=== PATIENT | male | born 1945 | race Caucasian/White ===

== ENCOUNTER 2025-03-15 09:06 | Emergency (ER) | payer MEDICARE, OTHER, SELFPAY ==
[2025-03-15 09:09] VITALS: BP 164/89; PULSE 77; TEMP 36.6; O2SAT 96
--- NOTE | 2025-03-15 10:03 | CT_ITS ---
WS: [id number] CT chest w con* [id number] HISTORY: trauma TECHNIQUE: Axial imaging performed through the thorax. Coronal and sagittal reformats are submitted. All CT scans at [facility] use at least one of these dose optimization techniques: automated exposure control; mA and/or kV adjustment per patient size (includes targeted exams where dose is matched to clinical indication); or iterative reconstruction. CONTRAST: Omnipaque 350; 100 mL IV. DLP: 392.08 mGy.cm COMPARISON: None available. Lungs and central airway: Lungs are well aerated. No pneumothorax. There is very minimal atelectasis and dependent changes at the lung bases. No pulmonary laceration. No mass or nodule. Pleura: Normal. No pleural effusion. Heart and pericardium: Mild RIGHT heart enlargement. No pericardial effusion. Mediastinum and brenda: No mediastinum or hilar adenopathy. Vessels: Mild atherosclerosis aorta. No filling defects in the proximal pulmonary arteries. Chest wall and lower neck: Acute minimally displaced rib fractures involving the ninth and 10th ribs posteriorly. Additional nondisplaced 11th rib fracture on the LEFT. There is a very subtle lucency through the LEFT L1 transverse process which is suspicious for an L1 transverse process fracture. Remote RIGHT healed ninth rib fracture. Severe LEFT shoulder arthritis. Prior RIGHT shoulder replacement. Thoracic spondylosis. No acute thoracic spine fracture identified. Upper abdomen: 1.2 cm RIGHT adrenal cyst. Nonobstructing calcifications upper pole of each kidney. No adrenal mass. No splenic or liver lacerations identified through the upper abdominal organs. Osseous structures: See chest wall above. CT/CT chest w con* [id number] IMPRESSION: 1. No pulmonary laceration or pneumothorax. 2. Acute minimally displaced rib fractures involving the LEFT ninth and 10th r ibs. Nondisplaced LEFT 11th rib fracture. 3. Incompletely visualized lucency through the LEFT L1 transverse process. Non displaced fracture not excluded. Lumbar spine CT may be of benefit. 4. Severe osteoarthritis LEFT shoulder.
--- NOTE | 2025-03-15 10:03 | XR_ITS ---
WS: [id number] Exam: XR chest 1V portable [id number] Date/Time of Exam: 03/15/2025 10:05 AM Reason For Exam: trauma No priors. The lungs are clear and fully expanded. Normal cardiomediastinal silhouette. No pleural effusions. Numerous old RIGHT rib fractures. RIGHT humeral head prosthesis partially visualized. Advanced DJD of the LEFT shoulder. XR/XR chest 1V portable [id number] IMPRESSION: 1. No acute cardiopulmonary finding.
--- NOTE | 2025-03-15 10:04 | W.ED.BACK ---
HPI - Back Pain/Injury General: Chief Complaint: Back Pain/Injury Stated Complaint: fell off horse, rib and lower back L shoulder pain Time Seen by Provider: 03/15/25 09:57 Source: patient Mode of arrival: ambulatory Limitations: no limitations History of Present Illness: 79-year-old male states that he fell off a horse yesterday states he landed on the left side he is having left rib pain going to the posterior ribs denies any midline back pain denies hitting his head denies any neck pain states he feels like he has spasms worse when he is trying to breathe. Rates his pain a 7 out of 10 Associated symptoms: Deny abdominal pain, chills, fever(s), nausea or vomiting Related Data Home Medications ?Medication ?Instructions ?Recorded ?Confirmed amlodipine 5 mg tablet 5 mg PO DAILY 03/15/25 03/15/25 amoxicillin 875 mg tablet 875 mg PO BID 03/15/25 03/15/25 aspirin 325 mg tablet,delayed 650 mg PO DAILY 03/15/25 03/15/25 release (Devon Aspirin) metoprolol succinate 100 mg 100 mg PO DAILY 03/15/25 03/15/25 tablet,extended release 24 hr nortriptyline 10 mg capsule 10 mg PO DAILY 03/15/25 03/15/25 omeprazole 20 mg capsule,delayed 20 mg PO DAILY 03/15/25 03/15/25 release tamsulosin 0.4 mg capsule 0.4 mg PO DAILY 03/15/25 03/15/25 telmisartan 80 1 tab PO DAILY 03/15/25 03/15/25 mg-hydrochlorothiazide 12.5 mg tablet (Micardis HCT) Previous Rx's ?Medication ?Instructions ?Recorded hydrocodone 5 mg-acetaminophen 325 1 tab PO Q6H PRN pain #14 tabs 03/15/25 mg tablet Allergies Allergy/AdvReac Type Severity Reaction Status Date / Time morphine Allergy Unknown Verified 03/15/25 09:17 Review of Systems Const: Denies: fever(s), chills, body aches or change in appetite ENMT: Denies: throat pain or dental pain Card: Reports: chest pain Resp: Denies: dyspnea GI: Denies: abdominal pain, nausea, vomiting or diarrhea Musc: Denies: neck pain or back pain Skin/Breast: Denies: rash Neuro: Denies: headache(s) Physical Exam Const: COMMON NORMALS: no acute distress, patient oriented x3 and healthy appearing HENMT: COMMON NORMALS: normocephalic and atraumatic HEAD & SCALP: normocephalic and atraumatic Eye: COMMON NORMALS: conjunctivae normal CONJUNCTIVA: Yes conjunctivae normal Neck/C-Spine: COMMON NORMALS: full ROM and supple CERVICAL SPINE: Yes cervical ROM normal and No Cervical spine tenderness Chest: COMMONS NORMALS: normal inspection of the chest OTHER: Tenderness over left lateral left posterior ribs Resp: COMMON NORMALS: normal respiratory effort, No retractions, No use of accessory muscles and clear to auscultation bilaterally AUSCULTATION: clear to auscultation bilaterally Cardio: COMMON NORMALS: regular rate, regular rhythm and No murmurs present (Cardio) RATE: regular rate RHYTHM: regular rhythm GI: COMMON NORMALS: Normal to inspection, nondistended, normoactive bowel sounds present, Soft to palpation, non-tender and no masses PALPATION: Yes Soft to palpation Back/Pelvis: THORACIC SPINE/UPPER BACK: Yes normal to inspection and No thoracic spinal tenderness LUMBAR SPINE/LOWER BACK: No lumbar spinal tenderness Extremity: COMMON NORMALS: normal to inspection and full ROM Neuro: COMMON NORMALS: patient oriented x3, moves all extremities and no focal motor deficits Psych: COMMON NORMALS: mental status grossly normal, Normal thought process present and cooperative THOUGHT PROCESS: Normal thought process present Skin: COMMON NORMALS: no rashes or lesions noted and no wounds GENERAL SKIN EXAM: no rashes or lesions noted Course Vital Signs: Vital signs: Vital Signs Temperature 97.9 F 03/15/25 09:09 Pulse Rate 77 03/15/25 09:09 Blood Pressure 164/89 03/15/25 09:09 Pulse Oximetry 96 03/15/25 09:09 Oxygen Delivery Me thod Room Air 03/15/25 09:09 MDM - Back Pain/Injury Medical Decision Making Patient presents here with rib fractures from a fall no pneumothorax or contusion he is well-appearing here I did reexamine his back he has no pain under over his lumbar spine we will place him on pain meds he is stable for discharge return if worsening. Medical Records I reviewed the patient's medical records. Labs I reviewed the patient's lab results. 03/15/25 10:15 03/15/25 10:[address] 03/15/25 10:03 IMPRESSION: 1. No pulmonary laceration or pneumothorax. 2. Acute minimally displaced rib fractures involving the LEFT ninth and 10th ribs. Nondisplaced LEFT 11th rib fracture. 3. Incompletely visualized lucency through the LEFT L1 transverse process. Nondisplaced fracture not excluded. Lumbar spine CT may be of benefit. 4. Severe osteoarthritis LEFT shoulder. Chest X-Ray 03/15/25 10:03 IMPRESSION: 1. No acute cardiopulmonary finding. Laboratory Results WBC 7.27 10^3/uL (3.29-11.43) 03/15/25 10:15 RBC 3.88 10^6/uL (3.85-5.65) 03/15/25 10:15 Hgb 12.30 g/dL (11.27-16.99) 03/15/25 10:15 Hct 37.4 % (37-53) 03/15/25 10:15 MCV 96.4 fl (82-101) 03/15/25 10:15 MCH 31.7 pg (27-33) 03/15/25 10:15 MCHC 32.9 g/dL (30-55) 03/15/25 10:15 RDW 13.2 % (12.1-15.1) 03/15/25 10:15 Plt Count 207 10^3/cmm (157-399) 03/15/25 10:15 MPV 8.7 fL (7.4-10.4) 03/15/25 10:15 Neut % (Auto) 79.0 % 03/15/25 10:15 Lymph % (Auto) 11.0 % 03/15/25 10:15 [place] % (Auto) 8.5 % 03/15/25 10:15 Eos % (Auto) 0.7 % 03/15/25 10:15 Baso % (Auto) 0.4 % 03/15/25 10:15 Neut # (Auto) 5.74 10^3/uL (1.8-7.7) 03/15/25 10:15 Lymph # (Auto) 0.8 10^3/uL (0.8-4.8) 03/15/25 10:15 [place] # (Auto) 0.6 10^3/uL (0.2-0.9) 03/15/25 10:15 Eos # (Auto) 0.1 10^3/uL (0.0-0.8) 03/15/25 10:15 Baso # (Auto) 0.0 10^3/uL (0.0-0.1) 03/15/25 10:15 Nucleated RBC % (auto) 0 % 03/15/25 10:15 Nucleated RBCs # 0.0 /100WBC 03/15/25 10:15 Sodium 142 mmol/L (136-145) 03/15/25 10:15 Potassium 3.9 mmol/L (3.5-5.1) 03/15/25 10:15 Chloride 104 mmol/L (98-107) 03/15/25 10:15 Carbon Dioxide 27 mmol/L (22-29) 03/15/25 10:15 Anion Gap 14.9 (5-19) 03/15/25 10:15 BUN 37 mg/dL (8-23) H 03/15/25 10:15 Creatinine 1.6 mg/dL (0.7-1.2) H 03/15/25 10:15 GFR Calculation Not Reportable 03/15/25 10:15 Glucose 114 mg/dL (65-115) 03/15/25 10:15 Calculated Osmolality 304 mOsm/kg (285-295) H 03/15/25 10:15 Calcium 9.3 mg/dL (8.5-10.5) 03/15/25 10:15 All radiology interpretation(s) finalized by discharge Discharge Plan Discharge Patient Disposition: Home Clinical Impression: Fall Closed rib fracture Qualifiers: Encounter type: initial encounter Rib fracture type: multiple ribs Laterality: left Qualified Code(s): S22.42XA - Multiple fractures of ribs, left side, initial encounter for closed fracture Condition: Stable Prescriptions: New hydrocodone-acetaminophen 5-325 mg tablet 1 tab PO Q6H PRN (Reason: pain) Qty: 14 0RF No Action metoprolol succinate 100 mg tablet extended release 24 hr 100 mg PO DAILY amlodipine 5 mg tablet 5 mg PO DAILY amoxicillin 875 mg tablet 875 mg PO BID tamsulosin 0.4 mg capsule 0.4 mg PO DAILY nortriptyline 10 mg capsule 10 mg PO DAILY telmisartan-hydrochlorothiazid [Micardis HCT] 80-12.5 mg tablet 1 tab PO DAILY omeprazole 20 mg capsule,delayed release(DR/EC) 20 mg PO DAILY aspirin [Devon Aspirin] 325 mg Tablet,Delayed Release (Dr/Ec) 650 mg PO DAILY Discharge Orders: Discharge ED (Routine); Ordered 03/15/25 Ordered By: Federico Buckner Discharge Diet: Advance as tolerated Discharge Activity: Resume usual activity Patient Instructions: Rib Fracture (ED), Opioid Safety Print Language: Malay Coding Level of Care Code ED Jail Manager for [facility]
[2025-03-15 10:25] LABS: Basophils % 0.4 %; Eosinophils # 0.1 10^3/uL (0.0-0.8); Eosinophils % 0.7 %; Hematocrit 37.4 % (37-53); Lymphocytes # 0.8 10^3/uL (0.8-4.8); Mean Corpuscular HGB Conc 32.9 g/dL (30-55); Mean Corpuscular Hemoglobin 31.7 pg (27-33); Mean Corpuscular Volume 96.4 fl (82-101); Mean Platelet Volume 8.7 fL (7.4-10.4); Monocytes # 0.6 10^3/uL (0.2-0.9); Monocytes % 8.5 %; Neutrophils # 5.74 10^3/uL (1.8-7.7); Nucleated Red Blood Cells % 0 %; Platelet Count 207 10^3/cmm (157-399); Red Blood Count 3.88 10^6/uL (3.85-5.65); Red Cell Distribution Width 13.2 % (12.1-15.1); White Blood Count 7.27 10^3/uL (3.29-11.43)
[2025-03-15] MEDS: ketorolac 30 mg/mL INJ 15 MG IVP (10:34)
[2025-03-15] MEDS: methocarbamol 750 mg Tablet 1500 MG PO (10:34)
[2025-03-15 10:51] LABS: Anion Gap 14.9 (5-19); Blood Urea Nitrogen 37 mg/dL (8-23); Calcium 9.3 mg/dL (8.5-10.5); Carbon Dioxide 27 mmol/L (22-29); Chloride 104 mmol/L (98-107); Creatinine Clr Calc Pharmacy 36.2485; Glucose 114 mg/dL (65-115); Osmolality Calculated 304 mOsm/kg (285-295); Potassium 3.9 mmol/L (3.5-5.1); Sodium 142 mmol/L (136-145)
[2025-03-15 12:07] VITALS: BP 165/71; PULSE 76; O2SAT 99
== END 2025-03-15 12:08 | disposition home or self-care (01) ==
PROVIDERS: Emergency Provider Emergency Medicine
DX: S22.42XA Multiple fractures of ribs, left side, initial encounter for closed fracture (principal); Z79.82 Long term (current) use of aspirin; V80.010A Animal-rider injured by fall from or being thrown from horse in noncollision accident, initial encounter
CPT/HCPCS: 36415; 71045; 71260; 80048; 85025; 96374; 99285; J1885; J9999